=== PATIENT | male | born 1985 | race Caucasian/White ===

== ENCOUNTER 2021-06-02 14:39 | Emergency (ER) | payer BC, SELFPAY ==
[2021-06-02 14:54] VITALS: BP 132/87; PULSE 93; RESP 12; TEMP 37.3; O2SAT 100
--- NOTE | 2021-06-02 15:31 | ED.URI ---
HPI - URI/Sore Throat General Chief Complaint: Upper Respiratory Infection Stated Complaint: fatigue/body aches Time Seen by Provider: 06/02/21 15:00 Source: patient, RN notes reviewed and old records reviewed Mode of arrival: ambulatory Limitations: no limitations History of Present Illness HPI Narrative: 36 year old male who presents to [facility] care with complaints of fatigue, body aches, low grade fevers with chills for the past 2-3 days. 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 Patient states that he has been taking NyQuil and DayQuil for his symptoms, reports some nasal congestion and drainage and some post nasal drainage which is making his throat tender. Patient has not had COVID immunizations. Patient denies any cough, no shortness of breath or any wheezing, respirations are even and nonlabored with SAO2 100% on room air. MD elicited complaint: rhinorrhea and nasal congestion Related Data Home Medications Medication Instructions Recorded Confirmed hydrochlorothiazide 12.5 mg PO DAILY 06/02/21 06/02/21 Allergies Allergy/AdvReac Type Severity Reaction Status Date / Time Penicillins Allergy Mild RASH Verified 06/13/19 12:20 Quinolones Allergy Dizziness Verified 06/02/21 14:48 Review of Systems Review of Systems: CONSTITUTIONAL:Reports low grade fever, chills, or sweats. EYES: Denies visual changes, redness, or discharge. ENT: Positive rhinorrhea, congestion,mild sore throat, no otalgia. CARDIOVASCULAR: Denies chest pain, palpitations, or edema. RESPIRATORY: Denies cough or dyspnea. GASTROINTESTINAL: Denies abdominal pain, nausea, vomiting, or diarrhea. GENITOURINARY: Denies dysuria or hematuria. SKIN: Denies rash or itching. MUSCULOSKELETAL: Denies back pain, joint pain,reports body aches and fatigue NEUROLOGIC: Denies headache, numbness, or weakness. PSYCHIATRIC: Denies anxiety or depression. All systems reviewed & are unremarkable except as noted in HPI and below PMFSH Past Medical History Medical History (Updated 06/04/21 @ 17:52 by Ruma Beasley NP) Hx of migraines Hypertension Surgical History Surgical History (Updated 06/04/21 @ 17:50 by Ruma Beasley NP) S/P tonsillectomy and adenoidectomy Family History Family History (Updated 06/04/21 @ 17:52 by Ruma Beasley NP) Grandparent Lupus (systemic lupus erythematosus) Throat cancer Mother Hypertension Social History Social History (Updated 06/04/21 @ 17:50 by Ruma Beasley NP) Smoking status: Never smoker Alcohol intake: former Alcohol use details: social history only does not drink alcohol now Substance use: never Living arrangements: with family Gender identity (if verbalized by the patient): Male Comments At time of signature agree with nursing documentation of past medical, surgical, social and family history, There is no relevant family history pertinent to presenting complaint. Exam Narrative: GENERAL: Well-appearing, well-nourished, and in no acute distress. HEAD: Normocephalic, atraumatic. EYES: PERRLA and EOMI. ENT: Nares with mild redness with clear rhinorrhea no epistaxis. Mucous membranes moist.TM's normal with good light reflex, throat mild redness no exudates or lesions tonsils absent some post nasal drainage noted. NECK: Supple.no lymphadenopathy CHEST: Clear to auscultation. No respiratory distress.SAO2 100% on room air HEART: Regular rate and rhythm. No murmur heard. Normal peripheral pulses. ABDOMEN: Soft, nontender, nondistended, normal active bowel sounds. EXTREMITIES: Normal range of motion. No edema.reports generalized body aches. SKIN: Warm, dry, no rash. NEURO: No focal deficits. Alert and oriented x3. Course Vital Signs Vital signs: Vital Signs Temperature 37.3 C 06/02/21 14:54 Pulse Rate 93 06/02/21 14:54 Respiratory Rate 12 06/02/21 14:54 Blood Pressure 132/87 06/02/21 14:54 Pulse Oximetry 100
[2021-06-04 00:32] LABS: SARS-CoV-2 RNA PCR Negative
== END 2021-06-02 15:50 | disposition home or self-care (01) ==
PROVIDERS: Emergency Provider Registered Nurse; PCP Family Medicine Sports Medicine
DX: J06.9 Acute upper respiratory infection, unspecified (principal); Z20.822 Contact with and (suspected) exposure to COVID-19; I10 Essential (primary) hypertension
CPT/HCPCS: 87426; 87804; 99213; C9803; G0463; U0003; U0005

== ENCOUNTER 2022-07-10 16:15 | Emergency (ER) | payer BC, SELFPAY ==
--- NOTE | ~2022-07-10 | XR_ITS ---
EXAMINATION: XR chest 2V Exam Date/Time: 07/10/2022 20:50 CDT HISTORY: dizziness/weakness, SOB Comparison: None available. RESULT: Lines, tubes, and devices: None. Lungs and pleura: Clear. Cardiomediastinal silhouette: Normal. Other: No acute osseous or upper abdominal finding. IMPRESSION: No acute cardiopulmonary process. Reviewed, dictated and finalized at location K.
[2022-07-10 16:37] VITALS: BP 161/98; PULSE 92; RESP 14; TEMP 36.8; O2SAT 99
--- NOTE | 2022-07-10 16:37 | ECG_ITS ---
Measurements Intervals [place] Rate: 93 P: 38 ID: 142 QRS: 36 QRSD: 97 T: 31 QT: 341 QTc: 426 Interpretive Statements SINUS RHYTHM BORDERLINE R WAVE PROGRESSION, ANTERIOR LEADS BORDERLINE ECG NO PREVIOUS ECG AVAILABLE FOR COMPARISON Electronically Signed On 07-10-2022 20:57:23 CDT by Sky Parker D.O.
[2022-07-10 16:52] LABS: Basophils Percent Auto 0.4 % (0.2-1.2); Eosinophils Percent Auto 0.5 % (0-4.4); Hematocrit 48.8 % (42.0-52.0); Hemoglobin 16.7 g/dL (14.0-18.0); Immature Granulocyte Absolute 0.02 K/mm3 (0.00-0.031); Immature Granulocyte Percent A 0.3 % (0-0.5); Lymphocytes Absolute Auto 1.84 K/mm3 (0.9-3.2); Lymphocytes Percent Auto 23.1 % (18.3-44.2); Mean Corpuscular HGB Conc 34.2 g/dl (32-36); Mean Corpuscular Hemoglobin 30.4 pg (26-34); Mean Corpuscular Volume 88.7 fl (80-100); Mean Platelet Volume 10.2 fl (7.4-10.4); Monocytes Absolute Auto 0.6 K/mm3 (0.1-0.6); Monocytes Percent Auto 7.5 % (2.6-8.5); Neutrophils Absolute Auto 5.4 K/mm3 (1.3-6.7); Neutrophils Percent Auto 68.2 % (45.5-73.1); Platelet Count Result 282 k/mm3 (150-375)
[2022-07-10 17:01] LABS: Alanine Aminotransferase 29 U/L (6-50); Albumin Level 4.9 g/dL (3.5-5.1); Alkaline Phosphatase 72 U/L (38-126); Anion Gap 16 mmol/L (8-16); Aspartate Amino Transferase 26 U/L (17-59); Bilirubin,Total 0.5 mg/dL (0.2-1.3); Blood Urea Nitrogen 11 mg/dL (9-20); Calcium 9.3 mg/dL (8.4-10.2); Carbon Dioxide 22 mmol/L (22-30); Chloride 100 mmol/L (98-107); Estimated CRCL calculation 114 ml/min; Estimated Glomerular Filt Rate > 60; Glucose 106 mg/dL (65-110); Potassium 3.3 mmol/L (3.4-5.0); Sodium 138 mmol/L (137-145)
--- NOTE | 2022-07-10 18:44 | PC.NURSE ---
pt called to go back to a room at [id number] with no answer
--- NOTE | 2022-07-10 19:12 | PC.NURSE ---
Pt called for a room @ 184 and 1904 with no answer in waiting room.
--- NOTE | 2022-07-10 19:21 | PC.NURSE ---
Pt back in the waiting room at this time. placed back into the triage line
[2022-07-10 20:20] VITALS: BP 135/87; PULSE 82
[2022-07-10 20:22] VITALS: BP 153/96; PULSE 74
[2022-07-10 20:23] VITALS: BP 140/105; PULSE 106
[2022-07-10 20:25] VITALS: BP 155/97; PULSE 78; RESP 18; O2SAT 99
--- NOTE | 2022-07-10 20:52 | ED.GENADULT ---
HPI - General Adult General Chief complaint: Dizziness Stated complaint: lightheaded Time Seen by Provider: 07/10/22 20:30 History of Present Illness HPI narrative: This is a 37-year-old male history of hypertension/ADHD presents ED with 4 days of lightheadedness. The patient says that he has been feeling off. This is included lightheadedness when he stands up. Patient has been taking Adderall for his ADHD for several years. He also recently stopped taking his medications when he felt dizzy. Additionally he has a daughter at home who is sick with a viral illness. He has had several episodes of nausea and vomiting. Patient is not vaccinated against COVID-19. The patient denies chest pain, difficulty breathing, abdominal pain, diarrhea. Related Data Home Medications Medication Instructions Recorded Confirmed hydrochlorothiazide 12.5 mg capsule 12.5 mg PO DAILY 06/02/21 06/02/21 Allergies Allergy/AdvReac Type Severity Reaction Status Date / Time Penicillins Allergy Mild RASH Verified 06/13/19 12:20 Quinolones Allergy Dizziness Verified 06/02/21 14:48 Review of Systems Review of Systems: CONSTITUTIONAL: Denies night sweats. EYES: No eye pain ENT: Denies rhinorrhea CARDIOVASCULAR: Denies palpitations RESPIRATORY: Denies hemoptysis GASTROINTESTINAL: Denies hematemesis GENITOURINARY: Denies hematuria. SKIN: Denies rash MUSCULOSKELETAL: Denies myalgia. NEUROLOGIC: Denies weakness. PSYCHIATRIC: Denies delusions PMFSH Past Medical History Medical History Hx of migraines Hypertension Surgical History Surgical History S/P tonsillectomy and adenoidectomy Family History Family History Grandparent Lupus (systemic lupus erythematosus) Throat cancer Mother Hypertension Social History Social History Smoking status: Never smoker Alcohol intake: former Alcohol use details: social history only does not drink alcohol now Substance use: never Gender identity (if verbalized by the patient): Male Exam Narrative: APPEARANCE: No apparent distress. Head atraumatic. EYES: PERRLA/EOMI, No nystagmus at rest NOSE: Normal no drainage NECK: Supple, Trachea midline no peripheral edema RESPIRATORY: CTAB, No increased work of breathing. CARDIOVASCULAR: S1S2 appreciated ABDOMINAL: Soft, nontender, nondistended, MUSCULOSKELETAl: No obvious deformities NEURO: Alert. Cranial nerves 2-12 grossly intact. Sensation light touch, motor function cerebellar function intact for 4 extremities. Gait exam was normal. SKIN:: Warm, dry. Normal color PSYCHIATRIC: Normal affect Course Vital Signs Vital signs: Vital Signs Temperature 98.3 F 07/10/22 16:37 Pulse Rate 92 07/10/22 16:37 Respiratory Rate 14 07/10/22 16:37 Blood Pressure 161/98 H 07/10/22 16:37 Pulse Oximetry 99 07/10/22 16:37 Oxygen Delivery Room Air 07/10/22 16:37 Temperature 98.3 F 07/10/22 16:37 Pulse Rate 78 07/10/22 20:25 Respiratory Rate 18 07/10/22 20:25 Blood Pressure 155/97 H 07/10/22 20:25 Pulse Oximetry 99 07/10/22 20:25 Oxygen Delivery Room Air 07/10/22 16:37 Medical Decision Making MDM Narrative Medical decision making narrative: this is a 37-year-old male presenting to ED with 4 days of feeling off. The patient has recently stopped taking his ADHD medications which are known to increase her blood pressure. His lightheadedness could be due to his cessation of Adderall. Additionally he has a young child at home who is ill with a nonspecific cold. He has had several episodes of nausea and vomiting which in combination with a viral illness could be causing his symptoms. Basic lab work, EKG troponin and chest x-ray have been ordered. COVID swab has been ordered. Patient pepito
[2022-07-10 21:35] LABS: Troponin I < 0.012 ng/mL (0.000-0.034)
[2022-07-10 22:02] LABS: SARS-CoV-2 RNA PCR Negative
== END 2022-07-10 21:55 | disposition home or self-care (01) ==
PROVIDERS: Emergency Medicine; Emergency Provider Emergency Medicine; PCP Family Medicine Sports Medicine
DX: R42 Dizziness and giddiness (principal); Z91.128 Patient's intentional underdosing of medication regimen for other reason; F90.9 Attention-deficit hyperactivity disorder, unspecified type; Z20.822 Contact with and (suspected) exposure to COVID-19
CPT/HCPCS: 36415; 71046; 80053; 84484; 85025; 93005; 99284; C9803; U0003; U0005

== ENCOUNTER 2025-08-26 19:57 | Emergency (ER) | payer BC, SELFPAY ==
[2025-08-26 20:06] VITALS: BP 140/96; PULSE 94; RESP 20; TEMP 36.8; O2SAT 97
--- NOTE | 2025-08-26 20:11 | PC.NURSE ---
After triage, pt asking how long wait is. Pt and decided that since he does not have any symptoms they are going to monitor at home and come back if needed.
== END 2025-08-26 20:11 | disposition left against medical advice (07) ==
PROVIDERS: PCP Family Medicine Sports Medicine
DX: T63.461A Toxic effect of venom of wasps, accidental (unintentional), initial encounter (principal)
CPT/HCPCS: 99199